=== PATIENT | male | born 1945 | race Caucasian/White ===

== ENCOUNTER 2019-01-19 05:22 | Observation (INO) ==
[2019-01-19] MEDS ORDERED: Ondansetron 4 MG/2 ML VIAL IVP ONE (05:36)
[2019-01-19] MEDS ORDERED: Aspirin 81 MG TAB.CHEW PO ONE (05:36)
[2019-01-19] MEDS ORDERED: Nitroglycerin 0.4 MG TAB.SUBL SL ONE (05:36)
[2019-01-19 05:48] LABS: Basophils % 0.3 %; Eosinophils # 0.1 K/mcL (0.0-0.6); Eosinophils % 2.3 %; Hematocrit 42.7 % (37.5-50.1); Hemoglobin 14.4 g/dL (12.9-16.9); Immature Granulocytes % 0.3 % (0-4); Lymphocytes # 1.8 K/mcL (0.6-4.6); Lymphocytes % 29.4 %; Mean Corpuscular HGB Conc 33.7 g/dL (31.6-35.5); Mean Corpuscular Hemoglobin 31.2 pg (28.0-33.3); Mean Corpuscular Volume 92.4 fL (83.0-100.0); Mean Platelet Volume 10.7 fL (9.4-12.4); Monocytes # 0.6 K/mcL (0.0-1.3); Monocytes % 9.9 %; Neutrophils # 3.5 K/mcL (1.6-8.9); Platelet Count 164 K/mcL (140-400); Red Blood Count 4.62 M/mcL (4.19-5.50); Red Cell Distribution Width 13.6 % (11.5-14.5); Segmented Neutrophils % 57.8 %
[2019-01-19 05:55] LABS: Prothrombin Time 11.2 Seconds (9.4-12.1)
--- NOTE | 2019-01-19 05:55 | Emergency Department Note ---
Disposition Clinical Impression: Hypercholesterolemia Chest pain Qualifiers: Chest pain type: unspecified Qualified Code(s): R07.9 - Chest pain, unspecified HTN (hypertension) Qualifiers: Hypertension type: essential hypertension Qualified Code(s): I10 - Essential (primary) hypertension Disposition: Admitted As Inpatient Condition: Good General Adult HPI - General Stated complaint: "CP" Time Seen by Provider: 01/19/19 05:25 Nursing Notes Reviewed: Yes Vital Signs Reviewed: Yes - History of Present Illness HPI Narrative: 73-year-old male with history of hypyperlipidemia, CAD status post stenting who presents the emergency department with complaints of chest pain. Patient states he woke from sleep this morning due to pain in his chest. He described it as significant pressure sitting on his chest with intermittent radiation into his back, shortness of breath and nausea as well as chills during onset. The patient took 2 nitroglycerin at home with significant improvement in his pain. He also took a dose of his 's Zofran with some improvement in his nausea. He states he did take his morning aspirin. He states his most recent stent was placed in [place] in July 2018. Since that time he has been taking his medications as directed without problem. He otherwise notes that the pain persists but is significantly improved. Otherwise denies any fever, chills, vomiting, diarrhea, abdominal pain, lower extremity swelling, dizziness, h eadache recent surgery or long distance travel. He has no history of blood clot in his legs or his lungs. He does note that he is a part-time resident of [place] and otherwise lives in [place] during the rest of the year. Pain Scale: 2 - Related Data Home Medications Medication Instructions Recorded Confirmed Clopidogrel [Plavix] 75 mg PO DAILY 01/19/19 01/19/19 Losartan Potassium [Cozaar] 100 mg PO DAILY 01/19/19 01/19/19 Metoprolol [Lopressor] 25 mg PO BID 01/19/19 01/19/19 Nitroglycerin [Nitrostat] 0.4 mg SL Q5MIN PRN 01/19/19 01/19/19 Pravastatin Sodium [Pravachol] 40 mg PO DAILY 01/19/19 01/19/19 Tamsulosin HCl [Flomax] 0.4 mg PO HS 01/19/19 01/19/19 Previous Rx's Medication Instructions Recorded Aspirin 81 mg PO DAILY #60 tab.chew 01/19/19 Allergies Allergy/AdvReac Type Severity Reaction Status Date / Time No Known Allergies Allergy Verified 01/19/19 13:53 Review of Systems: ROS per history of present illness, all other systems reviewed and negative or normal. All systems ED: reviewed and negative except as stated. Review of Systems: As Per HPI Past Medical History - Past Medical History Medical history: Reports: hyperlipidemia, hypertension, myocardial infarction Psychiatric history: Reports: no psych history - Social History Smoking Status: Unknown if ever smoked Physical Exam General: Conversant. No apparent distress. Follow commands. Appears stated age. Neck: No JVD. Trachea midline. Neck supple. Eyes: PERRL. No scleral icterus. HENT: Normocephalic and atraumatic. Moist mucus membranes. Cardiovascular: Regular rate and rhythm. Normal S1 and S2. No murmurs appreciated. Normal capillary refill. Extremities well perfused with 2+ distal pulses bilaterally. No edema. No appreciable leg swelling or tenderness. Pulmonary: Normal and equal breath sounds bilaterally, anteriorly and posteriorly. No wheezes, rales, or rhonchi. Not in respiratory distress. Speaks in full sentences. Abdomen: Soft, nondistended, and tontender. No bruits or masses. No guarding. Neuro: Alert and oriented x3. No slurred speech. No focal deficits noted. Skin: No rashes noted on visualized skin. Musculoskeletal: No bony abnormalities visualized. Moves all extremities. Psych: Normal mood. Pleasant. Makes appropriate eye contact. - General General appearance: alert, in no apparent distress Course - Consultations Consultation #1: Paged hospitalist for admission. Time: 06:18 Consultation #2: Hospitalist paged again for admission due to unreturned page. Time: 06:53 Consultation #3: Onc hospitalist returned page and agreed for plan for admission. Time: 07:14 Vital Signs Temperature 98.5 F 01/19/19 05:27 Pulse Rate 63 01/19/19 05:27 Respiratory Rate 13 01/19/19 05:27 Blood Pressure 148/83 01/19/19 05:27 O2 Sat by Pulse Oximetry 96 01/19/19 05:27 Temperature 98.5 F 01/19/19 05:27 Pulse Rate 60 01/19/19 06:52 Respiratory Rate 16 01/19/19 06:52 Blood Pressure 114/76 01/19/19 06:52 O2 Sat by Pulse Oximetry 95 01/19/19 06:52 Oxygen Delivery Oxygen Delivery Room Air Medical Decision Making - MDM Narrative Medical decision making narrative: 73-year-old male with history of CAD status post stenting who presents the emergency department with complaint chest pain, similar to his previous episodes of ACS. The patient does not follow with cardiology here at [place] as he is a after resident of [place] and recently moved to this area family partner. On arrival patient's vital signs are stable, without hypoxic: The in distress. EKG shows normal sinus rhythm without acute ischemic changes. Given his history did obtain CBC, BMP, BNP, troponin, chest x-ray. He was given 325 mg aspirin as well as one repeat dose of nitroglycerin as he has taken 2 at home. Laboratory evaluation shows no significant anemia, electrolyte abnormality. His troponin is undetectable 1. BNP not significantly elevated. Chest x-ray shows no evidence of acute focal consolidation. HEART score of 6. Discussed case with on- call hospitalist Dr. Garcia who agrees with plan for admission and accepts the patient to the inpatient service. Patient agrees with and understands course of treatment plan including plan for admission. All questions answered. - Medical Records Medical records reviewed: Yes I reviewed the patient's medical records. - Lab Data Lab results reviewed: Yes I reviewed the patient's lab results. Result diagrams: 01/19/19 05:35 01/19/19 05:35 Lab Results 01/19/19 01/19/19 01/19/19 Range/Units 05:35 05:35 05:35 WBC 6.1 (4.3-11.1) K/mcL RBC 4.62 (4.19-5.50) M/mcL Hgb 14.4 (12.9-16.9) g/dL Hct 42.7 (37.5-50.1) % MCV 92.4 (83.0-100.0) fL MCH 31.2 (28.0-33.3) pg MCHC 33.7 (31.6-35.5) g/dL RDW 13.6 (11.5-14.5) % Plt Count 164 (140-400) K/mcL MPV 10.7 (9.4-12.4) fL Immature Gran % 0.3 (0-4) % Seg Neutrophils % 57.8 % Lymphocytes % 29.4 % Monocytes % 9.9 % Eosinophils % 2.3 % Basophils % 0.3 % Neutrophils # 3.5 (1.6-8.9) K/mcL Lymphocytes # 1.8 (0.6-4.6) K/mcL Monocytes # 0.6 (0.0-1.3) K/mcL Eosinophils # 0.1 (0.0-0.6) K/mcL Basophils # 0.0 (0.0-0.2) K/mcL PT 11.2 (9.4-12.1) Seconds INR 1.0 APTT 31.4 (26.0-36.0) Seconds Sodium (136-145) mEq/L Potassium (3.5-5.1) mEq/L Chloride (98-107) mEq/L Carbon Dioxide (23-29) mEq/L BUN (8-23) mg/dL Creatinine (0.70-1.30) mg/dL Est GFR ( Amer) (> 60) Est GFR (Non-Af Amer) (> 60) BUN/Creatinine Ratio (6-26) Glucose (70-105) mg/dL Calculated Osmolality (280-300) Calcium (8.6-10.3) mg/dL Troponin I (< 0.04) ng/mL B-Natriuretic Peptide 20 (Less than 100) pg/mL 01/19/19 Range/Units 05:35 WBC (4.3-11.1) K/mcL RBC (4.19-5.50) M/mcL Hgb (12.9-16.9) g/dL Hct (37.5-50.1) % MCV (83.0-100.0) fL MCH (28.0-33.3) pg MCHC (31.6-35.5) g/dL RDW (11.5-14.5) % Plt Count (140-400) K/mcL MPV (9.4-12.4) fL Immature Gran % (0-4) % Seg Neutrophils % % Lymphocytes % % Monocytes % % Eosinophils % % Basophils % % Neutrophils # (1.6-8.9) K/mcL Lymphocytes # (0.6-4.6) K/mcL Monocytes # (0.0-1.3) K/mcL Eosinophils # (0.0-0.6) K/mcL Basophils # (0.0-0.2) K/mcL PT (9.4-12.1) Seconds INR APTT (26.0-36.0) Seconds Sodium 139 (136-145) mEq/L Potassium 4.0 (3.5-5.1) mEq/L Chloride 104 (98-107) mEq/L Carbon Dioxide 23 (23-29) mEq/L BUN 15 (8-23) mg/dL Creatinine 1.18 (0.70-1.30) mg/dL Est GFR ( Amer) > 60 (> 60) Est GFR (Non-Af Amer) > 60 (> 60) BUN/Creatinine Ratio 13 (6-26) Glucose 118 H (70-105) mg/dL Calculated Osmolality 290 (280-300) Calcium 9.1 (8.6-10.3) mg/dL Troponin I < 0.03 (< 0.04) ng/mL B-Natriuretic Peptide (Less than 100) pg/mL - Radiology Data Radiology results reviewed: Yes I reviewed the patient's radiology results. - EKG Data EKG #1 EKG attestation: Yes I reviewed and interpreted this EKG. EKG results narrative: Normal sinus rhythm rate of 58. There is no acute ST elevation or depressions. Normal intervals. There are no priors for comparison. Attestation Statement - Attestation Attestation: I have seen this patient with the resident physician, I have personally evaluated this patient. I had reviewed the chart and document dictation by the resident physician and aM in agreement with the information documented by the resident physician. Please see documentation by the resident physician for complete chart including past medical history, family medical history, review of systems, current history and physical and laboratory and imaging studies. I was present for all procedures, provided direct supervision for all procedures, was present for the entirety of all procedures and provided direct guidance during the procedures. Please see documentation by the resident physician for any procedures performed. Heart Score - Score History: Highly Suspicious EKG: Normal Age: Greater than 65 Risk Factors: Equal/Greater than 3 risk factor or history of atherosclerotic disease Troponin: Less than normal limit HEART Score Total: 6
--- NOTE | 2019-01-19 05:55 | Emergency Department Note ---
Disposition Clinical Impression: Chest pain Disposition: Still a Patient Condition: Fair General Adult HPI - General Chief complaint: ED Chest Pain Stated complaint: "CP" Time Seen by Provider: 01/19/19 05:25 - History of Present Illness Pain Scale: 2 - Related Data Allergies Allergy/AdvReac Type Severity Reaction Status Date / Time No Known Allergies Allergy Verified 01/19/19 05:27 Past Medical History - Past Medical History Medical history: Reports: hyperlipidemia, hypertension, myocardial infarction Psychiatric history: Reports: no psych history - Social History Smoking Status: Unknown if ever smoked Physical Exam - General General appearance: alert, in no apparent distress Course Vital Signs Temperature 98.5 F 01/19/19 05:27 Pulse Rate 63 01/19/19 05:27 Respiratory Rate 13 01/19/19 05:27 Blood Pressure 148/83 01/19/19 05:27 O2 Sat by Pulse Oximetry 96 01/19/19 05:27 Temperature 98.5 F 01/19/19 05:27 Pulse Rate 63 01/19/19 05:27 Respiratory Rate 13 01/19/19 05:27 Blood Pressure 148/83 01/19/19 05:27 O2 Sat by Pulse Oximetry 96 01/19/19 05:27 Oxygen Delivery Oxygen Delivery Room Air Medical Decision Making - Lab Data Result diagrams: 01/19/19 05:35 Lab Results 01/19/19 Range/Units 05:35 WBC 6.1 (4.3-11.1) K/mcL RBC 4.62 (4.19-5.50) M/mcL Hgb 14.4 (12.9-16.9) g/dL Hct 42.7 (37.5-50.1) % MCV 92.4 (83.0-100.0) fL MCH 31.2 (28.0-33.3) pg MCHC 33.7 (31.6-35.5) g/dL RDW 13.6 (11.5-14.5) % Plt Count 164 (140-400) K/mcL MPV 10.7 (9.4-12.4) fL Immature Gran % 0.3 (0-4) % Seg Neutrophils % 57.8 % Lymphocytes % 29.4 % Monocytes % 9.9 % Eosinophils % 2.3 % Basophils % 0.3 % Neutrophils # 3.5 (1.6-8.9) K/mcL Lymphocytes # 1.8 (0.6-4.6) K/mcL Monocytes # 0.6 (0.0-1.3) K/mcL Eosinophils # 0.1 (0.0-0.6) K/mcL Basophils # 0.0 (0.0-0.2) K/mcL Attestation Statement - Attestation Attestation: I have seen this patient with the resident physician, I have personally evaluat ed this patient. I had reviewed the chart and document dictation by the resident physician and aM in agreement with the information documented by the resident physician. Please see documentation by the resident physician for complete chart including past medical history, family medical history, review of systems, current history and physical and laboratory and imaging studies. I was present for all procedures, provided direct supervision for all procedures, was present for the entirety of all procedures and provided direct guidance during the procedures. Please see documentation by the resident physician for any procedures performed. Patient presents emergency Department with chief complaint of chest heaviness that woke him up from sleep. He has a history of coronary artery disease, with stent placement in [place], where he lives half of the year, approximately 5 and half to 6 months ago. The patient states he is taking all of his medications since that time including blood pressure medications aspirin and Plavix. He states that he felt very nauseated with this discomfort, also a little bit short of breath. The patient states he took 2 nitroglycerin which did help his chest heaviness. He states he had pressure going into his back the back discomfort was completely relieved with the nitroglycerin he still has a little bit of centralized chest pressure. He states he took one of his 's nausea medications which is helping his nausea but he still feels nauseated. Denies fevers chills cough sputum production pleuritic pain. Denies tearing or ripping sensation. Denies abdominal pain. Denies urinary changes. Denies unilateral leg pain or swelling. Denies history of blood clots. EKG is a sinus rhythm, no evidence of acute ischemia or dysrhythmia hyperkalemia or abnormal intervals interpreted myself. No old EKG was available for comparison. Basic laboratory studies including CBC basic metabolic profile cardiac enzymes were ordered. Patient was given the remainder of a full aspirin he typically takes a baby aspirin he was given 3 more baby aspirin. Secondary to patient having history of coronary artery disease, with story highly concerning for potential for cardiac related symptoms with sudden onset of chest pressure that woke him up from sleep with associated nausea and shortness of breath with symptoms being exactly similar to when he required a stent, he will be admitted to the hospital for further evaluation and management pending his workup in the emergency department we will aggressively laboratory findings, but at this time EKG shows no evidence of acute ischemia, no indication for activation of the cardiac catheter lab, no indication for TPA. Patient has no unilateral swelling no palpable cord. tenderness, nothing to suggest DVT without pleuritic pain, without tachycardia without hypoxia without current shortness of breath with symptoms consistent with his prior cardiac disease, no indication for imaging or workup for pulmonary embolism. Patient has no symptoms or clinical exam findings or chest x-ray findings to suggest aortic pathology such as aortic aneurysm, and I do not feel there is indication for CT for this at this time. Anticipated admission to the hospital pending his laboratory studies at this time.
[2019-01-19 05:57] LABS: Activated Partial Thrombo Time 31.4 Seconds (26.0-36.0)
[2019-01-19 06:03] LABS: BUN/Creatinine Ratio 13 (6-26); Blood Urea Nitrogen 15 mg/dL (8-23); Calcium 9.1 mg/dL (8.6-10.3); Carbon Dioxide 23 mEq/L (23-29); Chloride 104 mEq/L (98-107); Glucose 118 mg/dL (70-105); Osmolality,Calculated 290 (280-300); Sodium 139 mEq/L (136-145); Troponin I < 0.03 ng/mL (< 0.04); eGFR For Non-African Americans > 60 (> 60)
[2019-01-19] MEDS ORDERED: Naloxone 0.4 MG/ML INJ IVP PRN (07:32)
[2019-01-19] MEDS ORDERED: Nitroglycerin 0.4 MG TAB.SUBL SL PRN (07:34)
--- NOTE | 2019-01-19 09:41 | Internal Med History&Physical ---
Date of Encounter: 01/19/19 Time of Encounter: 07:00 Internal Medicine - H&P: HPI Chief complaint: Chest pain of 1 day duration History of present illness: Mr. Goldsmith is a 73 year old male with pmh of CAD s/p stent, hypertension, dyslipidemia presenting with complaints of chest pain of 1 day duration. Patient says he's visiting his [place] home from [place] and did a lot of mowing the grass yesterday. Afterwards he says he had constant left sided chest pain that persi sted till this morning. He also says he got clammy and nauseated this morning and took some nitroglycerin which helped relieve the pain. He denies any shortness of breath during this episode. Says he felt better after the nitroglycerin and was able to drive himself to the hospital. In the ER, initial troponins and EKG were WNL. He is being admitted for further management Past Med Surg Social Fam HX - Past Medical History Medical history: hyperlipidemia, hypertension, myocardial infarction Psychiatric history: no psych history - Social History Smoking Status: Never smoker Smokeless Tobacco Status: No Alcohol use: none Drug use: unknown - Family History Mother History Unknown: Yes Internal Medicine - H&P: Meds Clopidogrel [Plavix] 75 mg PO DAILY 01/19/19 [History] Losartan Potassium [Cozaar] 100 mg PO DAILY 01/19/19 [History] Metoprolol Tartrate [Lopressor] 25 mg PO BID 01/19/19 [History] Nitroglycerin [Nitrostat] 0.4 mg SL Q5MIN PRN 01/19/19 [History] Pravastatin Sodium [Pravachol] 40 mg PO DAILY 01/19/19 [History] Tamsulosin HCl [Flomax] 0.4 mg PO HS 01/19/19 [History] Allergy/AdvReac Type Severity Reaction Status Date / Time No Known Allergies Allergy Verified 01/19/19 05:27 All Systems PM: A 10-system review of systems was performed and is negative for pertinent findings except as documented above in the HPI. - Constitutional Constitutional: no chills, no fever(s), no night sweats - EENT Eyes: no change in vision, no discharge, no pain, no photophobia Ears: no ear discharge, no ear pain, no tinnitus Nose, mouth and throat: no dysphagia, no nasal discharge, no neck pain, no sore throat - Cardiovascular Cardiovascular ROS IM: chest pain, diaphoresis, no lightheadedness, no palpitations, no syncope - Respiratory Respiratory: no cough, no dyspnea, no wheezing, no excessive phlegm production - Gastrointestinal Gastrointestinal: no abdominal pain, no diarrhea, no hematemesis, no hematochezia, no melena, no nausea, no vomiting - Musculoskeletal Musculoskeletal ROS IM: no numbness, no tingling - Integumentary Integumentary IM: no rash, no unusual bruising - Neurological Neurological ROS: no confusion, no convulsions, no focal weakness, no numbness, no tingling, no tremor(s) - Hematologic/Lymphatic Hematologic/Lymphatic: no easy bruising - Constitutional Vitals: Temp Pulse Resp BP Pulse Ox 97.9 F 54 16 138/86 94 01/19/19 08:55 01/19/19 08:55 01/19/19 08:55 01/19/19 08:55 01/19/19 08:55 General appearance: Present: A&O X 3 Exam: NAD - Head Head exam: Present: atraumatic, normocephalic - Eye Eye exam: Present: PERRL, conjuntiva pink, sclera anicteric Pupils: Present: PERRL - Neck Neck exam general surgery: Present: supple, trachea midline. Absent: lymphadenopathy - Respiratory Respiratory exam: Present: CTAB. Absent: accessory muscle use, rales, rhonchi, wheezes - Cardiovascular Cardiovascular exam: Present: RRR, +S1, +S2. Absent: diastolic murmur, gallop, rubs, systolic murmur - GI/Abdominal GI/Abdominal exam: Present: normal bowel sounds, soft, no peritoneal signs. Absent: distended, tenderness - Extremities Exam Extremities exam: Present: warm, radial pulses palpable and symmetrical. Absent: calf tenderness, cyanotic, pedal edema - Neurological Exam Neurological exam: Present: CN II-XII intact, oriented X3, no focal deficits. Absent: pronater drift, facial droop, speech deficit - Skin Skin exam: Present: dry, intact Internal Med - H&P Results - Labs CBC & Chem 7: 01/19/19 05:35 01/19/19 05:35 Labs: Short CBC 01/19/19 Range/Units 05:35 WBC 6.1 (4.3-11.1) K/mcL Hgb 14.4 (12.9-16.9) g/dL Hct 42.7 (37.5-50.1) % Plt Count 164 (140-400) K/mcL Neutrophils # 3.5 (1.6-8.9) K/mcL BMP 01/19/19 05:35 Sodium 139 Potassium 4.0 Chloride 104 Carbon Dioxide 23 BUN 15 Creatinine 1.18 Glucose 118 H Calcium 9.1 Cardiac Enzymes 01/19/19 Range/Units 05:35 Troponin I < 0.03 (< 0.04) ng/mL - Impressions ITS Impressions Chest X-Ray 01/19/19 05:36 IMPRESSION: No acute process. D/ / Bo Berumen MD / Bo Berumen MD Interpreting Provider: Bo Berumen MD - Assessment and Plan (1) Chest pain Current Visit: Yes Status: Acute Assessment and plan: Pt comes in with typical left sided chest pain and has risk factors for CAD Started on aspirin, continue home plavix. Initial EKG and troponins WNL Trned troponins, obtain 2D echo and nuclear stress test Qualifiers: Chest pain type: unspecified Qualified Code(s): R07.9 - Chest pain, unspecified (2) HTN (hypertension) Current Visit: Yes Status: Acute Assessment and plan: Controlled. Continue metoprolol and losartan Qualifiers: Hypertension type: essential hypertension Qualified Code(s): I10 - Essential (primary) hypertension (3) Hypercholesterolemia Current Visit: Yes Status: Acute Assessment and plan: Continue atorvastatin (4) DVT prophylaxis Current Visit: Yes Status: Acute Assessment and plan: Heparin sc - Time Spent With Patient Total time spent is greater than 50% in coordination of care (as documented) at patient's floor/unit and/or counseling patient:
--- NOTE | 2019-01-19 10:39 | Electrocardiograph Report ---
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
[2019-01-19 11:00] VITALS: BP 131/77
[2019-01-19] MEDS ORDERED: Regadenoson 0.4 MG/5 ML SYRINGE IVP ONE (12:13)
--- NOTE | 2019-01-19 14:54 | Discharge Summary ---
Date of Encounter: 01/19/19 Time of Encounter: 14:00 - Discharge Diagnosis (1) Chest pain Priority: Primary Status: Acute Assessment and Plan: 73 year old male with pmh of CAD s/p stent, hypertension, dyslipidemia presenting with complaints of chest pain of 1 day duration. Patient says he's visiting his [place] home from [place] and did a lot of mowing the grass yesterday. Afterwards he says he had constant left sided chest pain that persisted till this morning. He also says he got clammy and nauseated this morning and took some nitroglycerin which helped relieve the pain. He denies any shortness of breath during this episode. Says he felt better after the nitroglycerin and was able to drive himself to the hospital. He was assessed with typical left sided chest pain and has risk factors for CAD. Started on aspirin and home plavix was continued. Two sets of troponins were negative. EKG showed no acute findings. Stress test was done and came back normal. HE was discharged home on aspirin and to continue plavix Qualifiers: Chest pain type: unspecified Qualified Code(s): R07.9 - Chest pain, unspecified (2) HTN (hypertension) Priority: Primary Status: Acute Qualifiers: Hypertension type: essential hypertension Qualified Code(s): I10 - Essential (primary) hypertension (3) Hypercholesterolemia Priority: Primary Status: Acute (4) DVT prophylaxis Priority: Primary Status: Acute Hospital course: Mr. Goldsmith is a 73 year old male - Time Spent with Patient Total time spent providing and/or coordinating discharge services: - Discharge Medications Prescriptions: New Aspirin 81 mg PO DAILY #60 tab.chew Continued Clopidogrel [Plavix] 75 mg PO DAILY Tamsulosin HCl [Flomax] 0.4 mg PO HS Pravastatin Sodium [Pravachol] 40 mg PO DAILY Nitroglycerin [Nitrostat] 0.4 mg SL Q5MIN PRN PRN Reason: Chest Pain Losartan Potassium [Cozaar] 100 mg PO DAILY Metoprolol [Lopressor] 25 mg PO BID Home Medications: Aspirin 81 mg PO DAILY #60 tab.chew 01/19/19 [Rx] Clopidogrel [Plavix] 75 mg PO DAILY 01/19/19 [History] Losartan Potassium [Cozaar] 100 mg PO DAILY 01/19/19 [History] Metoprolol [Lopressor] 25 mg PO BID 01/19/19 [History] Nitroglycerin [Nitrostat] 0.4 mg SL Q5MIN PRN 01/19/19 [History] Pravastatin Sodium [Pravachol] 40 mg PO DAILY 01/19/19 [History] Tamsulosin HCl [Flomax] 0.4 mg PO HS 01/19/19 [History] Allergies/Adverse Reactions: Allergy/AdvReac Type Severity Reaction Status Date / Time No Known Allergies Allergy Verified 01/19/19 13:53 Date of admission: 01/19/19 07:35 Primary care physician: PCP NONE - Constitutional Vitals: Temp Pulse Resp BP Pulse Ox 97.6 F 52 16 131/77 96 01/19/19 10:59 01/19/19 10:59 01/19/19 10:59 01/19/19 10:59 01/19/19 10:59 General appearance: Present: A&O X 3 Exam: NAD - Head Head exam: Present: atraumatic, normocephalic - Eye Eye exam: Present: PERRL, conjuntiva pink, sclera anicteric Pupils: Present: PERRL - Neck Neck exam general surgery: Present: supple, trachea midline. Absent: lymphadenopathy - Respiratory Respiratory exam: Present: CTAB. Absent: accessory muscle use, rales, rhonchi, wheezes - Cardiovascular Cardiovascular exam: Present: RRR, +S1, +S2. Absent: diastolic murmur, gallop, rubs, systolic murmur - GI/Abdominal GI/Abdominal exam: Present: normal bowel sounds, soft, no peritoneal signs. Absent: distended, tenderness - Extremities Exam Extremities exam: Present: warm, radial pulses palpable and symmetrical. Absent: calf tenderness, cyanotic, pedal edema - Neurological Exam Neurological exam: Present: CN II-XII intact, oriented X3, no focal deficits. Absent: pronater drift, facial droop, speech deficit - Skin Skin exam: Present: dry, intact - Patient Status Disposition: Home, Self-Care Condition: Good - Discharge Instructions Follow Up With: NONE,PCP [Primary Care Provider] -
[2019-01-19] MEDS ORDERED: *HR* Heparin 5,000 UNIT/ML VIAL SQ SCH (18:00)
[2019-01-20] MEDS ORDERED: Aspirin 81 MG TAB.CHEW PO SCH (09:00)
== END 2019-01-19 15:08 | disposition home or self-care (01) ==
LOC: EMEROOARM 05:22 → 2ANU 05:22
PROVIDERS: ADMIT Student in an Organized Health Care Education/Training Program; ATTEND Student in an Organized Health Care Education/Training Program

== ENCOUNTER 2020-09-28 22:43 | Observation (INO) ==
[2020-09-28 23:04] LABS: Basophils % 0.4 %; Eosinophils # 0.1 K/mcL (0.0-0.6); Eosinophils % 1.7 %; Hematocrit 42.6 % (37.5-50.1); Hemoglobin 14.2 g/dL (12.9-16.9); Immature Granulocytes % 0.1 % (0-4); Lymphocytes # 2.7 K/mcL (0.6-4.6); Mean Corpuscular HGB Conc 33.3 g/dL (31.6-35.5); Mean Corpuscular Hemoglobin 30.7 pg (28.0-33.3); Mean Corpuscular Volume 92.2 fL (83.0-100.0); Mean Platelet Volume 10.5 fL (9.4-12.4); Monocytes # 0.7 K/mcL (0.0-1.3); Monocytes % 9.8 %; Neutrophils # 3.4 K/mcL (1.6-8.9); Platelet Count 162 K/mcL (140-400); Red Blood Count 4.62 M/mcL (4.19-5.50); Red Cell Distribution Width 13.5 % (11.5-14.5)
[2020-09-28 23:11] LABS: Prothrombin Time 11.8 Seconds (9.4-12.1)
[2020-09-28] MEDS ORDERED: Aspirin 81 MG TAB.CHEW PO ONE (23:16)
[2020-09-28 23:29] LABS: BUN/Creatinine Ratio 11 (6-26); Blood Urea Nitrogen 13 mg/dL (8-23); Calcium 8.9 mg/dL (8.6-10.3); Carbon Dioxide 24 mEq/L (23-29); Chloride 106 mEq/L (98-107); Glucose 144 mg/dL (70-105); Osmolality,Calculated 289 (280-300); Potassium 3.9 mEq/L (3.5-5.1); Sodium 138 mEq/L (136-145); eGFR For African Americans > 60 (> 60); eGFR For Non-African Americans 58 (> 60)
[2020-09-28 23:30] LABS: Troponin I < 0.03 ng/mL (< 0.04)
[2020-09-29] MEDS ORDERED: Ondansetron 4 MG/2 ML VIAL IVP PRN (01:41)
[2020-09-29] MEDS ORDERED: Naloxone 0.4 MG/ML INJ IVP PRN (01:41)
[2020-09-29] MEDS ORDERED: Acetaminophen 325 MG TABLET PO PRN (01:41)
[2020-09-29] MEDS ORDERED: Nitroglycerin 0.4 MG TAB.SUBL SL PRN (04:17)
[2020-09-29 04:19] LABS: Hematocrit 39.8 % (37.5-50.1); Hemoglobin 13.2 g/dL (12.9-16.9); Immature Platelets 3.9 % (1.1-6.1); Mean Corpuscular HGB Conc 33.2 g/dL (31.6-35.5); Mean Corpuscular Hemoglobin 31.4 pg (28.0-33.3); Mean Corpuscular Volume 94.5 fL (83.0-100.0); Mean Platelet Volume 10.8 fL (9.4-12.4); Red Blood Count 4.21 M/mcL (4.19-5.50); Red Cell Distribution Width 13.3 % (11.5-14.5); White Blood Count 5.7 K/mcL (4.3-11.1)
[2020-09-29 04:39] LABS: BUN/Creatinine Ratio 10 (6-26); Blood Urea Nitrogen 12 mg/dL (8-23); Calcium 8.4 mg/dL (8.6-10.3); Carbon Dioxide 22 mEq/L (23-29); Chloride 108 mEq/L (98-107); Glucose 126 mg/dL (70-105); Magnesium 2.1 mg/dL (1.6-2.6); Osmolality,Calculated 287 (280-300); Phosphorous 3.3 mg/dL (2.7-4.5); Potassium 4.1 mEq/L (3.5-5.1); Sodium 138 mEq/L (136-145); eGFR For African Americans > 60 (> 60); eGFR For Non-African Americans > 60 (> 60)
[2020-09-29 04:40] LABS: Troponin I < 0.03 ng/mL (< 0.04)
[2020-09-29] MEDS ORDERED: *HR* Heparin 5,000 UNIT/ML VIAL SQ SCH (06:00)
[2020-09-29] MEDS ORDERED: Regadenoson 0.4 MG/5 ML SYRINGE IVP ONE (06:04)
[2020-09-29] MEDS ORDERED: Perflutren Lipid Microsphere 1.3 ML in 0.9 % Sodium Chloride 8.7 ML IVP PRN (07:49)
[2020-09-29] MEDS ORDERED: Aspirin 81 MG TAB.CHEW PO SCH (09:00)
[2020-09-29 11:28] VITALS: BP 114/64
[2020-09-29] MEDS ORDERED: Aspirin 81 MG TAB.CHEW PO ONE (23:01)
== END 2020-09-29 12:03 | disposition home or self-care (01) ==
LOC: EMEROOARM 22:43 → 3BNU 22:43
PROVIDERS: ADMIT Family Medicine; ATTEND Family Medicine

== ENCOUNTER 2021-08-05 09:06 | Observation (INO) ==
[2021-08-05] MEDS ORDERED: Aspirin 81 MG TAB.CHEW PO ONE (09:10)
[2021-08-05 09:38] LABS: Basophils % 0.4 %; Eosinophils # 0.1 K/mcL (0.0-0.6); Eosinophils % 1.5 %; Hematocrit 42.5 % (37.5-50.1); Hemoglobin 14.6 g/dL (12.9-16.9); Lymphocytes # 1.4 K/mcL (0.6-4.6); Lymphocytes % 28.2 %; Mean Corpuscular HGB Conc 34.4 g/dL (31.6-35.5); Mean Corpuscular Hemoglobin 31.8 pg (28.0-33.3); Mean Corpuscular Volume 92.6 fL (83.0-100.0); Mean Platelet Volume 10.6 fL (9.4-12.4); Monocytes # 0.4 K/mcL (0.0-1.3); Monocytes % 7.3 %; Platelet Count 163 K/mcL (140-400); Red Blood Count 4.59 M/mcL (4.19-5.50); Red Cell Distribution Width 13.3 % (11.5-14.5); Segmented Neutrophils % 62.6 %; White Blood Count 4.8 K/mcL (4.3-11.1)
[2021-08-05 09:46] LABS: INR 1.1; Prothrombin Time 11.8 Seconds (9.4-12.1)
[2021-08-05 09:49] LABS: Activated Partial Thrombo Time 33.5 Seconds (26.0-36.0)
[2021-08-05 10:00] LABS: BUN/Creatinine Ratio 13 (6-26); Blood Urea Nitrogen 16 mg/dL (8-23); Calcium 8.9 mg/dL (8.6-10.3); Carbon Dioxide 26 mEq/L (23-29); Chloride 105 mEq/L (98-107); Glucose 111 mg/dL (70-105); Osmolality,Calculated 288 (280-300); Potassium 3.9 mEq/L (3.5-5.1); Sodium 138 mEq/L (136-145); Troponin I < 0.03 ng/mL (< 0.04); eGFR For African Americans > 60 (> 60); eGFR For Non-African Americans 60 (> 60)
[2021-08-05] MEDS ORDERED: Ondansetron 4 MG/2 ML VIAL IVP PRN (10:16)
[2021-08-05] MEDS ORDERED: Naloxone 0.4 MG/ML INJ IVP PRN (10:16)
[2021-08-05] MEDS: *HR* Heparin 5,000 UNIT/ML VIAL SQ SCH ×2 (14:14→21:51)
[2021-08-05 23:21] VITALS: TEMP 97.6
[2021-08-06 02:31] LABS: Basophils % 0.3 %; Eosinophils # 0.2 K/mcL (0.0-0.6); Eosinophils % 2.6 %; Hematocrit 39.3 % (37.5-50.1); Hemoglobin 13.4 g/dL (12.9-16.9); Immature Granulocytes % 0.2 % (0-4); Immature Platelets 5.1 % (1.1-6.1); Lymphocytes # 2.3 K/mcL (0.6-4.6); Lymphocytes % 37.7 %; Mean Corpuscular HGB Conc 34.1 g/dL (31.6-35.5); Mean Corpuscular Hemoglobin 31.5 pg (28.0-33.3); Mean Corpuscular Volume 92.5 fL (83.0-100.0); Mean Platelet Volume 10.8 fL (9.4-12.4); Monocytes # 0.5 K/mcL (0.0-1.3); Monocytes % 8.9 %; Platelet Count 145 K/mcL (140-400); Red Blood Count 4.25 M/mcL (4.19-5.50); Red Cell Distribution Width 13.3 % (11.5-14.5); Segmented Neutrophils % 50.3 %; White Blood Count 6.1 K/mcL (4.3-11.1)
[2021-08-06 02:41] LABS: BUN/Creatinine Ratio 15 (6-26); Blood Urea Nitrogen 16 mg/dL (8-23); Calcium 8.2 mg/dL (8.6-10.3); Carbon Dioxide 24 mEq/L (23-29); Chloride 106 mEq/L (98-107); Glucose 119 mg/dL (70-105); Magnesium 1.8 mg/dL (1.6-2.6); Osmolality,Calculated 286 (280-300); Potassium 3.7 mEq/L (3.5-5.1); Sodium 137 mEq/L (136-145); eGFR For African Americans > 60 (> 60); eGFR For Non-African Americans > 60 (> 60)
[2021-08-06] MEDS: *HR* Heparin 5,000 UNIT/ML VIAL SQ SCH ×2 (05:24→12:33)
[2021-08-06] MEDS ORDERED: Regadenoson 0.4 MG/5 ML SYRINGE IVP ONE (06:28)
[2021-08-06 06:35] VITALS: BP 133/86; PULSE 67; O2SAT 97
[2021-08-06] MEDS ORDERED: Aspirin 81 MG TAB.CHEW PO SCH (09:00)
== END 2021-08-06 14:30 | disposition home or self-care (01) ==
LOC: EMEROOARM 09:06 → 3BNU 09:06 → SUATTDRO 10:23 → 3BNU 11:09
PROVIDERS: ADMIT Family Medicine; ATTEND Internal Medicine